=== PATIENT | male | born 1990 | race Caucasian/White ===

== ENCOUNTER 2017-08-09 17:50 | Emergency (ER) | payer OTHER ==
--- NOTE | 2017-08-09 17:57 | ER Report ---
History and Physical Time Seen By MD: 17:56 Hx. of Stated Complaint: pt was in rocking chair and hit head and lost consciousness, unwitnessed HPI/ROS 27-year-old male brought in by ambulance from [facility] he was rocking a rocking chair went back it is head on the wall had a positive loss of consciousness was found by his friends unresponsive is now alert and oriented mild headache Remainder of the 14 system rev: Yes Allergies: Coded Allergies: No Known Drug Allergies (Unverified , 08/09/17) Home Meds No Active Prescriptions or Reported Meds Past Medical/Surgical History Head injury 2 10 years ago Reviewed Nurses Notes: Yes Old Medical Records Reviewed: Yes Hx Smoking: No Exposure to Second Hand Smoke?: No Hx Substance Use Disorder: No Hx Alcohol Use: No Family History of: HTN Constitutional Vital Sign - Last 24 Hours 08/09/17 08/09/17 08/09/17 08/09/17 17:50 17:51 18:00 18:05 Temp 98.4 Pulse 91 100 ??? Resp 18 B/P (MAP) 141/100 150/92 (111) Pulse Ox 93 93 O2 Delivery Room Air 08/09/17 08/09/17 08/09/17 08/09/17 18:20 18:35 18:50 19:00 Pulse 88 ??? 93 B/P (MAP) 150/87 (108) Pulse Ox 94 93 08/09/17 08/09/17 08/09/17 08/09/17 19:05 19:20 19:30 19:35 Pulse 90 89 91 B/P (MAP) 132/90 (104) Pulse Ox 93 93 93 Physical Exam 27 year old male alert and orieted nad, lauro, gcs 15 heent head with hematoma to occiput, no neck pain, hrr lungs cta, abd soft, no other signs of trauma neurologically intact 2-12 Medical Decision Making Data Points Result Diagram: 08/09/17184708/09/171847 Laboratory Hematology Test 08/09/17 18:48 08/09/17 18:57 Red Blood Count 5.87 M/uL (4.00-5.60) Mean Corpuscular Volume 88.1 fL (80.0-96.0) Mean Corpuscular Hemoglobin 31.1 pg (26.0-33.0) Mean Corpuscular Hemoglobin Concent 35.3 g/dL (32.0-36.0) Red Cell Distribution Width 13.2 % (11.5-14.5) Mean Platelet Volume 8.2 fL (7.2-11.1) Sodium Level 139 mmol/L (137-145) Potassium Level 4.0 mmol/L (3.5-5.0) Chloride Level 100 mmol/L (98-107) Carbon Dioxide Level 26 mmol/L (22-30) Blood Urea Nitrogen 9 mg/dl (9-21) Creatinine 1.10 mg/dl (0.66-1.25) Glomerular Filtration Rate Calc > 60.0 Random Glucose 101 mg/dl (75-110) Calcium Level 9.6 mg/dl (8.4-10.2) Total Bilirubin 0.6 mg/dl (0.2-1.3) Aspartate Amino Transf (AST/SGOT) 23 U/L (0-35) Alanine Aminotransferase (ALT/SGPT) 35 U/L (0-56) Alkaline Phosphatase 66 U/L (0-126) Total Protein 7.9 gm/dl (6.3-8.2) Albumin 4.6 g/dl (3.5-5.0) Urine Color Yellow Urine Clarity Clear Urine pH 6.0 pH (4.8-9.5) Urine Specific [place] 1.013 Urine Protein Negative mg/dL (NEGATIVE) Urine Glucose (UA) Negative mg/dL (NEGATIVE) Urine Ketones Negative mg/dL (NEGATIVE) Urine Blood Negative (NEGATIVE) Urine Nitrite Negative (NEGATIVE) Urine Bilirubin Negative (NEGATIVE) Urine Urobilinogen 2.0 mg/dL (0.2-1.9) Urine Leukocyte Esterase Negative (NEGATIVE) Urine RBC None /HPF (0-2/HPF) Urine WBC None /HPF (0-5/HPF) Urine Squamous Epithelial Cells None /LPF (</=FEW) Urine Bacteria Negative /HPF (NONE-FEW) Urine Mucus Few /HPF (NONE-FEW) Urine Opiates Screen Negative Urine Barbiturates Screen Negative Ur Tricyclic Antidepressants Screen Negative Urine Phencyclidine Screen Negative Urine Amphetamines Screen Negative Urine Benzodiazepines Screen Negative Urine Cocaine Screen Negative Urine Cannabinoids Screen Negative Chemistry Test 08/09/17 18:48 08/09/17 18:57 White Blood Count 5.1 k/uL (4.5-11.0) Red Blood Count 5.87 M/uL (4.00-5.60) Hemoglobin 18.2 g/dL (14.0-18.0) Hematocrit 51.7 % (42.0-52.0) Mean Corpuscular Volume 88.1 fL (80.0-96.0) Mean Corpuscular Hemoglobin 31.1 pg (26.0-33.0) Mean Corpuscular Hemoglobin Concent 35.3 g/dL (32.0-36.0) Red Cell Distribution Width 13.2 % (11.5-14.5) Platelet Count 230 K/uL (150-450) Mean Platelet Volume 8.2 fL (7.2-11.1) Glomerular Filtration Rate Calc > 60.0 Calcium Level 9.6 mg/dl (8.4-10.2) Total Bilirubin 0.6 mg/dl (0.2-1.3) Aspartate Amino Transf (AST/SGOT) 23 U/L (0-35) Alanine Aminotransferase (ALT/SGPT) 35 U/L (0-56) Alkaline Phosphatase 66 U/L (0-126) Total Protein 7.9 gm/dl (6.3-8.2) Albumin 4.6 g/dl (3.5-5.0) Urine Color Yellow Urine Clarity Clear Urine pH 6.0 pH (4.8-9.5) Urine Specific [place] 1.013 Urine Protein Negative mg/dL (NEGATIVE) Urine Glucose (UA) Negative mg/dL (NEGATIVE) Urine Ketones Negative mg/dL (NEGATIVE) Urine Blood Negative (NEGATIVE) Urine Nitrite Negative (NEGATIVE) Urine Bilirubin Negative (NEGATIVE) Urine Urobilinogen 2.0 mg/dL (0.2-1.9) Urine Leukocyte Esterase Negative (NEGATIVE) Urine RBC None /HPF (0-2/HPF) Urine WBC None /HPF (0-5/HPF) Urine Squamous Epithelial Cells None /LPF (</=FEW) Urine Bacteria Negative /HPF (NONE-FEW) Urine Mucus Few /HPF (NONE-FEW) Urine Opiates Screen Negative Urine Barbiturates Screen Negative Ur Tricyclic Antidepressants Screen Negative Urine Phencyclidine Screen Negative Urine Amphetamines Screen Negative Urine Benzodiazepines Screen Negative Urine Cocaine Screen Negative Urine Cannabinoids Screen Negative Toxicology Test 08/09/17 18:57 Urine Opiates Screen Negative Urine Barbiturates Screen Negative Ur Tricyclic Antidepressants Screen Negative Urine Phencyclidine Screen Negative Urine Amphetamines Screen Negative Urine Benzodiazepines Screen Negative Urine Cocaine Screen Negative Urine Cannabinoids Screen Negative Urinalysis Test 08/09/17 18:57 Urine Color Yellow Urine Clarity Clear Urine pH 6.0 pH (4.8-9.5) Urine Specific [place] 1.013 Urine Protein Negative mg/dL (NEGATIVE) Urine Glucose (UA) Negative mg/dL (NEGATIVE) Urine Ketones Negative mg/dL (NEGATIVE) Urine Blood Negative (NEGATIVE) Urine Nitrite Negative (NEGATIVE) Urine Bilirubin Negative (NEGATIVE) Urine Urobilinogen 2.0 mg/dL (0.2-1.9) Urine Leukocyte Esterase Negative (NEGATIVE) Urine RBC None /HPF (0-2/HPF) Urine WBC None /HPF (0-5/HPF) Urine Squamous Epithelial Cells None /LPF (</=FEW) Urine Bacteria Negative /HPF (NONE-FEW) Urine Mucus Few /HPF (NONE-FEW) EKG/Imaging EKG Interpretation EKG at 1803 normal sinus ventricular rate 81 and QTc is 411 Monitor Interpretation: Normal Sinus Rhythm Imaging FACILITY: [facility] [place] PATIENT NAME: Gurdeep Tolentino : 1990 MR: [id number] V: [id number] EXAM DATE: ORDERING PHYSICIAN: ROMY FINN TECHNOLOGIST: Location: [facility] [place] Patient: Gurdeep Tolentino : 1990 Visit/Account:[id number] Date of Sevice: 08/09/2017 CT Head without contrast Indication: Loss of consciousness Comparison: None available Technique: Axial CT images were obtained through the brain from the skull base to the vertex without administration of IV contrast. Reformatted coronal and sagittal images were also obtained. One of the following dose optimization techniques was utilized in the performance of this exam: Automated exposure control; adjustment of the mA and/ or kV according to the patient's size; or use of an iterative reconstruction technique. Specific details can be referenced in the facility's radiology CT exam operational policy. Findings: There is no acute hemorrhage, midline shift or mass effect. No extra -axial fluid collections. The soto-white matter differentiation is maintained. The ventricles and basal cisterns are normal in contour and appearance. The visualized paranasal sinuses and mastoid air cells are clear. IMPRESSION: 1. No acute intracranial process. Report Dictated By: Alex Reich DO at 08/09/2017 7:39 PM Report E-Signed By: Alex Reich DO at 08/09/2017 7:45 PM [id number] ED Course/Re-evaluation ED Course Workup in the emergency room tonight was negative I did talk to patient about this he will follow up with primary care physician as needed he has a list of head injury instructions return if symptoms worsened Re-evaluation Pain-free on dismissal Decision to Disposition Date: Aug 09, 2017 Decision to Disposition Time: 19:35 Depart Departure Latest Vital Signs Vital Signs Date Time Temp Pulse Resp B/P (MAP) Pulse Ox O2 Delivery O2 Flow Rate FiO2 08/09/17 19:35 91 93 08/09/17 19:30 132/90 (104) 08/09/17 17:51 98.4 18 Room Air Impression: Primary Impression: Head injury Condition: Improved Disposition: HOME OR SELF-CARE Referrals: [facility] 1 Day New Scripts No Active Prescriptions or Reported Meds Patient Instructions: Head Injury (ED) Additional Instructions: Go home and rest, Tylenol or Motrin for pain, return for worsening symptoms, ROMY FINN Aug 09, 2017 17:57
--- NOTE | 2017-08-09 18:11 | EKG ---
FACILITY: [facility] [place] PATIENT NAME: KYLE ANNA : [id number] MR: [id number] V: [id number] EXAM DATE: ORDERING PHYSICIAN: ROMY FINN TECHNOLOGIST: MOOSE Funez Reason : KNOCKED OUT Blood Pressure : / mmHG Vent. Rate : 081 BPM Atrial Rate : 081 BPM P-R Int : 150 ms QRS Dur : 084 ms QT Int : 354 ms P-R-T Axes : 049 070 049 degrees QTc Int : 411 ms Normal sinus rhythm with sinus arrhythmia No ST-T abnormalities No previous ECGs available Confirmed by CALLIE HAYWOOD ([id number]) on 08/09/2017 10:59:30 PM Referred By: ER Confirmed By:CALLIE HAYWOOD
--- NOTE | 2017-08-09 19:47 | RADIOLOGY IMAGING REPORT ---
FACILITY: [facility] PATIENT NAME: Gurdeep Tolentino : 1990 MR: [id number] V: [id number] EXAM DATE: ORDERING PHYSICIAN: ROMY FINN TECHNOLOGIST: Location: [facility] [place] Patient: Gurdeep Tolentino : 1990 Visit/Account:[id number] Date of Sevice: 08/09/2017 CT Head without contrast Indication: Loss of consciousness Comparison: None available Technique: Axial CT images were obtained through the brain from the skull base to the vertex without administration of IV contrast. Reformatted coronal and sagittal images were also obtained. One of the following dose optimization techniques was utilized in the performance of this exam: Autom ated exposure control; adjustment of the mA and/or kV according to the patient's size; or use of an i terative reconstruction technique. Specific details can be referenced in the facility's radiology C T exam operational policy. Findings: There is no acute hemorrhage, midline shift or mass effect. No extra-axial fluid collecti ons. The soto-white matter differentiation is maintained. The ventricles and basal cisterns are nor mal in contour and appearance. The visualized paranasal sinuses and mastoid air cells are clear. IMPRESSION: 1. No acute intracranial process. Report Dictated By: Alex Reich DO at 08/09/2017 7:39 PM Report E-Signed By: Alex Reich DO at 08/09/2017 7:45 PM WSN:[id number]
== END 2017-08-09 21:15 | disposition home or self-care (01) ==
LOC: ER 17:59
DX: S06.9X9A Unspecified intracranial injury with loss of consciousness of unspecified duration, initial encounter (principal); W22.01XA Walked into wall, initial encounter
CPT/HCPCS: 36415; 70450; 80305; 81001; 82040; 82247; 82310; 82374; 82435; 82565; 82947; 84075; 84132; 84155; 84295; 84450; 84460; 84520; 85027; 93005; 99282

== ENCOUNTER → 2017-08-09 | Outpatient (CLI) | payer OTHER | LOC: AMB 17:31 | PROVIDERS: ATTEND Nurse Practitioner | DX: H53.8 Other visual disturbances (principal); R51 Headache; W07.XXXA Fall from chair, initial encounter | CPT/HCPCS: A0425; A0429 ==

== ENCOUNTER 2017-10-26 14:06 | Emergency (ER) | payer OTHER ==
--- NOTE | 2017-10-26 14:10 | ER Report ---
History and Physical Time Seen By MD: 14:10 HPI/ROS 27-year-old otherwise healthy male presents to the emergency department approximately 30 minutes after a small laceration to his left index finger which she sustained trying to open a prescription bottle with a knife. He has full range of motion and bleeding has since stopped. Tetanus is up-to-date. No other injuries. Remainder of the 14 system rev: Yes Allergies: Coded Allergies: No Known Drug Allergies (Unverified , 10/26/17) Home Meds No Active Prescriptions or Reported Meds Reviewed Nurses Notes: Yes Hx Smoking: No Exposure to Second Hand Smoke?: No Hx Substance Use Disorder: No Hx Alcohol Use: No Constitutional Vital Sign - Last 24 Hours 10/26/17 14:31 Temp 98.0 Pulse 70 Resp 18 B/P (MAP) 142/94 Pulse Ox 95 O2 Delivery Room Air Physical Exam General Appearance: The patient is alert, has no immediate need for airway protection and no current signs of toxicity. Eyes: Pupils equal and round no injection. Respiratory: Chest is non tender, lungs are clear to auscultation. Cardiac: regular rate and rhythm Extremities have full range of motion and are non tender. Skin: No rashes or lesions. 1 cm linear laceration to the ray surface of the left index finger. No joint or tendon involvement DIFFERENTIAL DIAGNOSIS: After history and physical exam differential diagnosis was considered for tendon laceration, foreign body, other trauma, infection Medical Decision Making ED Course/Re-evaluation ED Course Uncomplicated 1 cm linear laceration to the left index finger. No tendon or joint involvement. There is full range of motion. Tetanus up-to-date. No active bleeding but some bleeding with movement of the finger. Skin glue placed and covered with a bandage. Procedure Procedure: Laceration repair with Dermabond Verbal consent was obtained from the patient. The wound size laceration on the location. The wound was scrubbed and explored to its base with a gloved finger. There were no deep structures involved. No tendon injury was identified. The wound was repaired with Dermabond. The procedure was performed by myself. Decision to Disposition Date: October 26, 2017 Decision to Disposition Time: 14:46 Depart Departure Latest Vital Signs Vital Signs Date Time Temp Pulse Resp B/P (MAP) Pulse Ox O2 Delivery O2 Flow Rate FiO2 10/26/17 14:31 98.0 70 18 142/94 95 Room Air Impression: Primary Impression: Finger laceration Condition: Improved Disposition: HOME OR SELF-CARE New Scripts No Active Prescriptions or Reported Meds Patient Instructions: Laceration,Hand Problem Qualifiers Primary Impression: Finger laceration Encounter type: initial encounter Finger: index finger Damage to nail status: without damage Foreign body presence: without foreign body Laterality: left Qualified Codes: S61.211A - Laceration without foreign body of left index finger without damage to nail, initial encounter CLEMENTINA RUIZ MD October 26, 2017 14:10
[2017-10-26 14:31] VITALS: BP 142/94
== END 2017-10-26 15:10 | disposition home or self-care (01) ==
LOC: ER 14:07
DX: S61.211A Laceration without foreign body of left index finger without damage to nail, initial encounter (principal)
CPT/HCPCS: 99282